=== PATIENT | male | born 1985 | race Caucasian/White ===

== ENCOUNTER 2021-10-06 06:55 | Outpatient (CLI) | payer SELFPAY ==
[2021-10-06 07:03] VITALS: BMI 23.6
[2021-10-06 07:30] VITALS: BP 137/91; PULSE 78
--- NOTE | 2021-10-06 13:45 | ECG_ITS ---
[facility] Test Date: 2021-10-06 Pat Name: Dilshad Honeycutt Department: Room: Gender: Male Grinder Lap: : 1985 Requested By: Fredrick Garcia Order Number: [id number] Gan MD: Fredrick Garcia M.D. Interpretive Statements NAME OF STUDY: TREADMILL STRESS TEST INDICATION: [Shortness of Breath, ] EXERCISE DATA: The patient was exercised by Brenden protocol. Baseline heart rate was 60 beats per minute. Baseline blood pressure was 1204/79 millimeters of mercury. Target heart rate was 159 beats per minute. Maximum heart rate achieved was 184, which was 98% of the maximum predicted heart rate. Maximum blood pressure was 211/107 millimeters of mercury. Total exercise time was 14 minutes and 26 seconds. Maximum METs achieved was 17, maximum VO2 was 60. The reason for ending the test was completion of the protocol. The patient complained of shortness of breath during the stress test, which then resolved at the end of the test. ELECTROCARDIOGRAM: BASELINE: Showed sinus rhythm, right axis deviation, no significant ST-T changes at the baseline noted. [] EXERCISE: At the peak exercise level, No significant ST-T changes suggestive of ischemia noted. [] RECOVERY: During the recovery period, heart rate dropped appropriately. No significant ST-T changes in the recovery suggestive of ischemia noted. [] CONCLUSION: 1. Exercise capacity excellent. 2. Heart rate response was appropriate. 3. Blood pressure response was appropriate. 4. Symptoms not suggestive of ischemia. 5. Stress test negative for ischemia Electronically Signed On 11-15-2021 11:36:42 BOARD LAYER by Fredrick Garcia M.D. [id number]
== END 2021-10-06 06:56 | disposition home or self-care (01) ==
LOC: CDL 06:57
PROVIDERS: Visit Provider Internal Medicine
DX: R06.02 Shortness of breath (principal)
CPT/HCPCS: 93017

== ENCOUNTER 2021-11-18 15:24 | Outpatient (CLI) | payer SELFPAY ==
--- NOTE | 2021-11-18 15:45 | USCV_ITS ---
Dilshad Honeycutt Age: 36 Gender: M : 1985 Exam Date: 11/18/2021 15:47 Ordering Phys: Fredrick Garcia M.D ([email or web address]) Technologist: [email or web address] [place] [facility] [place]: Intermittent chest pain x 1-2 yrs. No hx cardiac intervention. BP: / HR: 58 Rhythm: Sinus Technical Quality: Good MEASUREMENTS (Male / Female) Normal Values 2D ECHO LV Diastolic Diameter PLAX 4.0 cm 4.2 - 5.9 / 3.9 - 5.3 cm LV Systolic Diameter PLAX 2.8 cm IVS Diastolic Thickness 0.9 cm 0.6 - 1.0 / 0.6 - 0.9 cm IVS Systolic Thickness 1.3 cm LVPW Diastolic Thickness 1.0 cm 0.6 - 1.0 / 0.6 - 0.9 cm LVPW Systolic Thickness 1.2 cm LVOT Diameter 2.0 cm LV Ejection Fraction 2D Teich 59.3 % LV Ejection Fraction MOD 2C 72.3 % LV Ejection Fraction 2C AL 72.5 % LA Diameter 3.1 cm LA Width 3.5 cm LA Height 4.8 cm RA Width 4.8 cm RA Height 4.8 cm Aorta at Sinotubular Diameter 2.7 cm M-MODE Aortic Annulus Diameter 2.7 cm LA Ao Ratio MM 1.2 MV E Point Septal Separation 0.2 cm DOPPLER AV Peak Velocity 95.0 cm/s LVOT Peak Velocity 105.0 cm/s AV Area Cont Eq vti 2.8 cm squared AV Area Cont Eq pk 3.4 cm squared MV Peak Velocity 104.0 cm/s MV Area PHT 3.1 cm squared Mitral E to A Ratio 1.5 MV E' Velocity 52.5 cm/s Mitral E to MV E' Ratio 5.4 Mitral E to LV E' Lateral Ratio 5.2 Mitral E to LV E' Septal Ratio 5.7 TR Peak Velocity 253.0 cm/s TR Peak Gradient 25.6 mmHg TV Peak E Velocity 36.0 cm/s Right Atrial Pressure 5.0 mmHg Pulmonary Artery Systolic Pressu 30.6 mmHg PV Peak Velocity 113.0 cm/s RV Acceleration Time 0.1 s RV Ejection Time 0.4 s RV AcT/ET 0.3 FINDINGS Left Ventricle Normal left ventricular size. LV systolic function is normal with EF of 55-60%. No regional wall motion abnormalities. Normal diastolic filling pattern. Right Ventricle The right ventricle is normal in size and function. Right Atrium The right atrium is normal in size. Normal RA pressure Left Atrium The left atrium is normal in size. Mitral Valve Structurally normal mitral valve without significant stenosis or prolapse. There is no mitral regurgitation. Aortic Valve Structurally normal aortic valve without significant sclerosis or stenosis. There is no aortic regurgitation. Tricuspid Valve Structurally normal tricuspid valve without significant stenosis or regurgitation. Insufficient TR jet to calculate RVSP Pulmonic Valve Structurally normal pulmonic valve without significant stenosis. There is no pulmonic regurgitation. Pericardium Normal pericardium without effusion. Aorta Normal ascending aorta dimension. CONCLUSIONS LV systolic function is normal with EF of 55-60% Normal diastolic function No significant valvular heart disease No comparison studies are available Fredrick Garcia MD (Electronically Signed) Final Date: 20 November 2021 10:19 S
== END 2021-11-18 15:25 | disposition home or self-care (01) ==
PROVIDERS: Visit Provider Internal Medicine
DX: R07.9 Chest pain, unspecified (principal)
CPT/HCPCS: 93306